=== PATIENT | female | born 1975 | race Caucasian/White ===

== ENCOUNTER 2016-06-19 05:06 | Inpatient (IN) | payer MEDICAID ==
[~2016-06-19] VITALS: Ht 152.4 cm; Wt 60.0 kg
[2016-06-19] VITALS (7 sets, daily range): BP systolic 112–130; BP diastolic 60–80; PULSE 66–81; RESP 18–19; Ht 152.4 cm; Wt 60.0 kg
[2016-06-19] MEDS ORDERED: OXYTOCIN 30 UNITS/LR 500 ML IV PRN ×2 (05:30→12:00)
[2016-06-19] MEDS ORDERED: CARBOPROST 250 MCG INJ IM PRN ×2 (05:30→12:00)
[2016-06-19] MEDS ORDERED: MISOPROSTOL 200 MCG TAB PR PRN ×2 (05:30→12:00)
[2016-06-19] MEDS ORDERED: METHYLERGONOVINE 0.2 MG INJ IM PRN ×2 (05:30→12:00)
[2016-06-19] MEDS ORDERED: CEFAZOLIN 2 GM/50 ML (PMX) 50 ML IV SCH (05:30)
[2016-06-19] MEDS ORDERED: OXYTOCIN 30 UNITS/LR 500 ML IV SCH (05:30)
[2016-06-19 05:39] LABS: ADD SCAN DIFF NO
[2016-06-19 05:55] LABS: BASOPHILS % 0.6 % (0.0-2.0); EOSINOPHILS # 0.1 10^3/ul (0.0-0.5); EOSINOPHILS % 1.1 % (0.0-7.0); HEMATOCRIT 35.2 % (37.0-47.0); HEMOGLOBIN 11.8 g/dl (12.0-16.0); LYMPHOCYTES # 1.6 10^3/ul (0.8-2.9); LYMPHOCYTES % 24.2 % (15.0-51.0); MEAN CORPUSCULAR HEMOGLOBIN 30.5 pg (29.0-33.0); MEAN CORPUSCULAR HGB CONC 33.5 g/dl (32.0-37.0); MEAN PLATELET VOLUME 8.9 fl (7.4-10.4); MONOCYTE # 0.7 10^3/ul (0.3-0.9); MONOCYTES % 10.1 % (0.0-11.0); NEUTROPHIL # 4.2 10^3/ul (1.6-7.5); NEUTROPHILS % 62.8 % (39.0-77.0); PLATELET COUNT 338 10^3/UL (140-415); RED BLOOD COUNT 3.87 10^6/ul (4.20-5.40); RED CELL DISTRIBUTION WIDTH 14.4 % (11.5-14.5); WHITE BLOOD COUNT 6.6 10^3/ul (4.8-10.8)
[2016-06-19 05:57] LABS: INR 0.91; PARTIAL THROMBOPLASTIN TIME 26.8 Sec (25.0-35.0); PROTIME 12.2 Sec (12.2-14.2)
[2016-06-19] MEDS: LACTATED RINGER'S 1,000 ML IV SCH ×3 (06:00→22:20)
[2016-06-19] MEDS ORDERED: CITRIC ACID/NA CITRATE 30 ML CUP PO ONE ×2 (07:30→08:30)
[2016-06-19] MEDS ORDERED: FAMOTIDINE 20 MG INJ IV ONE (08:00)
[2016-06-19] MEDS ORDERED: METOCLOPRAMIDE 10 MG INJ IV ONE (08:00)
[2016-06-19] MEDS ORDERED: LACTATED RINGER'S 1,000 ML IV ONE (08:02)
[2016-06-19] MEDS ORDERED: FENTAnyl 50 MCG/ML VIAL ONE (08:44)
[2016-06-19] MEDS ORDERED: morphine SULFATE/PF (10 MG/10 ML) INJ ONE (08:44)
[2016-06-19] MEDS ORDERED: OXYTOCIN 30 UNITS/LR 0 ML IV ONE (08:44)
[2016-06-19] MEDS ORDERED: PHENYLephrine (100 MCG/ML) 5ML SYG ONE (08:53)
[2016-06-19] MEDS ORDERED: ONDANSETRON 4 MG INJ ONE (08:54)
[2016-06-19] MEDS ORDERED: EPHEDrine SULFATE 50 MG/5 ML SYG ONE (09:14)
[2016-06-19] MEDS ORDERED: OXYTOCIN 30 UNITS/LR 500 ML IV ONE ×2 (09:20→09:21)
[2016-06-19] MEDS ORDERED: PROCHLORPERAZINE 10 MG INJ IV PRN ×2 (09:30→10:30)
[2016-06-19] MEDS ORDERED: KETOROLAC 30 MG INJ IV PRN (09:30)
[2016-06-19] MEDS ORDERED: MEPERIDINE 25 MG INJ IV PRN (09:30)
[2016-06-19] MEDS ORDERED: HYDROmorphONE (0.2 MG/ML) 10ML SYG IV PRN (09:30)
[2016-06-19] MEDS ORDERED: FENTAnyl 50 MCG/ML VIAL IV PRN (09:30)
[2016-06-19] MEDS ORDERED: ONDANSETRON 4 MG INJ IV PRN ×2 (09:30→10:30)
[2016-06-19] MEDS ORDERED: DIPHENHYDRAMINE 50 MG INJ IV PRN ×2 (09:30→10:30)
[2016-06-19] MEDS ORDERED: HYDROmorphONE 1 MG/ML SYG IV PRN ×2 (10:30)
[2016-06-19] MEDS ORDERED: NALOXONE (0.4 MG/ML) INJ IV PRN (10:30)
[2016-06-19] MEDS ORDERED: ZOLPIDEM 5 MG TAB PO PRN (10:30)
[2016-06-19] MEDS ORDERED: CEFAZOLIN 1 GM/50 ML (PMX) 50 ML IVPB SCH (12:00)
[2016-06-19] MEDS ORDERED: LANOLIN 7 GM TUBE TOP PRN (12:00)
[2016-06-19] MEDS: IBUPROFEN 600 MG TAB PO SCH ×2 (12:00→17:48)
[2016-06-19] MEDS ORDERED: OXYCODONE/ACETAMINOPHEN (5/325) TAB PO PRN (12:00)
[2016-06-19] MEDS ORDERED: ACETAMINOPHEN/CODEINE #3 TAB PO PRN ×2 (12:00)
[2016-06-19] MEDS: OXYTOCIN 30 UNITS/LR 500 ML IV SCH ×2 (13:14→17:58)
[2016-06-19] MEDS: KETOROLAC 30 MG INJ IV PRN (16:17)
--- NOTE | 2016-06-19 17:53 | HP ---
Date/Time of Note Date/Time of Note DATE: 06/19/16 TIME: 17:42 OB - History Hx of Present Free Text/Dictation This is a 40 years old female 4 para 1 SAB 2 living child 1 EDC of June 23, 2016 admitted to [facility] at 39 weeks and 3 days with a history of previous to undergo a repeat section this patient has been under the care of the [facility] and her course was complicated with gestational diabetes diet-controlled no other complications noted on the patient's for this . Medical history except for gestational diabetes negative for any other medical condition Surgical history one previous section Infectious and genetic history negative Physical examination 5 feet 132 pounds temperature 97.5 pulse 77 respiration 18 blood pressure 117/72 Head ears nose and throat negative next supple no thyromegaly Lungs clear to P&A Heart normal sinus rhythm no murmur Breast, bilateral breast examination abnormal palpable mass no nipple retraction or discharge no axillary adenopathy Abdomen size of the uterus consistent with the term measures 37 cm from symphysis pubis to the height of the fund heart rate category 1 Pelvic examination deferred Impression Intrauterine at 39 weeks and 4 days history of previous undergoing a repeat transverse low cervical section patient is aware of the complication of the surgery including bowel bladder injury infection hemorrhage and hematoma and she is willing to go ahead with this procedure Estimated Due Date: Jun 23, 2016 : 4 Para: 1 Spontaneous : 2 Care: Good Care Ultrasounds: Normal mid trimester US Obstetrical Complications: Gestational Diabetes Medical Complications: None Past Family/Social History * Past Medical, Surgical, Family and Obstetric Histories reviewed from chart. Rubella: immune RPR/VDRL: Negative GBS Status: Negative HBsAG: Negative OB Admission Exam Vital Signs Vital Signs Vital Signs Date Time Temp Pulse Resp B/P Pulse Ox O2 Delivery O2 Flow Rate FiO2 06/19/16 16:50 98 21 06/19/16 13:50 68 19 122/68 Room Air 06/19/16 12:50 97.9 Physical Exam HEENT: WNL Heart: Rhythm Normal Lungs: Clear, Equal Abdomen: WNL Reflexes: Normal Cervical Dilatation: None Effacement: 0% Station: -2 Membranes: Intact Heart Rate: 130's Accelerations: Accelerations Present Decelerations: No Decelerations Varibility: Absent Contractions on Admission: None Intensity: Mild Last 72 hours Lab Results CBC & BMP 06/19/16 05:25 OB Assessment/Plan Reason for admission: section, other (Repeat ) KATHY HARTMAN MD Jun 19, 2016 17:52
[2016-06-19] MEDS: SENNA/DOCUSATE NA (8.6MG/50MG) TAB PO SCH (21:00)
--- NOTE | 2016-06-19 21:40 | OPR ---
DATE OF OPERATION: PREOPERATIVE DIAGNOSES: 1. Intrauterine at 39 weeks and 4 days. 2. History of previous section. POSTOPERATIVE DIAGNOSES: 1. Intrauterine at 39 weeks and 4 days. 2. History of previous section. PROCEDURE: Repeat transverse low cervical section. SURGEON: Kathy Greene MD ECONOMIC DEVELOPER: Ernie Mcgrath MD ANESTHESIA: Spinal anesthesia. ANESTHESIOLOGIST: Dr. Idalmis Londono. FINDINGS: Live baby boy, 9 and 9. Baby weighed at 3565 grams. DETAILS OF THE PROCEDURE: Under satisfactory spinal anesthesia, the patient was prepped and draped and placed in supine position, tilted to the left. Pfannenstiel incision was made. Old scar was removed. Incision carried through the subcutaneous tissue. Bleeders brought under control with electrocautery. Fascia incised to the length of the incision. Rectus muscle divided in midline. Peritoneum exposed, entered through a transverse incision. Exploration of abdomen revealed a gravid uterus at term, normal appearing tubes and ovaries. Bladder flap was developed. Transverse incision was made in the lower segment of the uterus. Amniotic sac ruptured. Clear amniotic fluid noted. Live baby boy was delivered from unengaged vertex. Nasal oropharyngeal suction was performed. Cord was clamped after stopped pulsation. Nasal oropharyngeal suction was performed. Baby handed to the team for immediate attention. Patient received 20 units of Pitocin. Placenta delivered manually intact. Uterine cavity cleaned with wet sponge and drainage established. Uterus closed in 2 layers using Monocryl #1 in continuous fashion. Peritoneal cavity irrigated with warm saline. Sponge, needle and instrument reported to be correct. Abdominal peritoneum closed with 2-0 chromic catgut continuously. Rectus muscle approximated with few interrupted 2- 0 chromic catgut. Fascia closed with #1 PDS in a continuous fashion. Subcutaneous tissue approximated with 2-0 chromic catgut and the skin closed with darlene. Estimated blood loss 600 mL. Urine bag contained 200 mL of clear urine. Patient tolerated procedure well, transferred to recovery room in a good condition. Dictated By: KATHY CHIN/KUSUM Conf#: [id number] DID#: [id number] MTDD
--- NOTE | 2016-06-19 23:54 | OPR ---
DATE OF OPERATION: 06/19/2016 PREOPERATIVE DIAGNOSES: 1. Intrauterine at 39 weeks and 3 days. 2. History of previous section. POSTOPERATIVE DIAGNOSES: 1. Intrauterine at 39 weeks and 3 days. 2. History of previous section. PROCEDURE: Repeat transverse low cervical section. SURGEON: Kathy Hartman MD COMMUNITY SERVICES COORDINATOR: Ernie Mcgrath MD ANESTHESIA: Spinal. ANESTHESIOLOGIST: Idalmis Londono MD FINDINGS: Live baby boy, 9 and 9. Baby weighed 3565 grams. DETAILS OF THE PROCEDURE: Under satisfactory spinal anesthesia, the patient was prepped and draped and placed in supine position, tilted to the left. Pfannenstiel incision was made. Old scar was re moved. Incision carried through the subcutaneous tissue. Bleeders brought under control with elect rocautery. Fascia incised the full length of the incision. Rectus muscle divided in midline. Shannan toneum exposed, entered through a transverse incision. Exploration of the abdomen revealed a gravid uterus at term, normal-appearing tubes and ovaries and no abdominal adhesions. Bladder flap was de veloped. Transverse incision was made in the lower segment of the uterus. Amniotic sac ruptured. Clear amniotic fluid noted. Live baby boy was delivered from LOT position. Nasal oropharyngeal suc tion was performed. Cord clamped after stopped pulsation. Baby handed to the team for imm ediate attention. The patient received 20 units of Pitocin. Placenta delivered manually intact. U terine cavity cleaned with wet sponge and drainage established. Uterus closed in 2 layers using Mon ocryl #1 in continuous fashion. Peritoneal cavity irrigated with warm saline. Sponge, needle and i nstrument reported to be correct. Abdominal peritoneum closed with 2-0 chromic catgut continuously. Rectus muscle approximated with a few interrupted 2-0 chromic catguts. Fascia closed with #1 PDS in a continuous fashion. Subcutaneous tissue approximated with 2-0 chromic catgut. The skin closed with darlene. Estimated blood loss 600 mL. Urine bag contained 250 to 300 mL of clear urine. The patient tolerated the procedure well. Transferred to the recovery room in a good condition. Dictated By: KATHY HARTMAN MD HF/NTS Conf#: [id number] DID#: [id number]
[2016-06-20 00:05] VITALS: BP 106/57; PULSE 80; RESP 18
[2016-06-20] MEDS: KETOROLAC 30 MG INJ IV PRN (02:22)
[2016-06-20 03:45] VITALS: BP 116/55; PULSE 75; RESP 18
[2016-06-20] MEDS: IBUPROFEN 600 MG TAB PO SCH ×5 (06:00→23:33)
[2016-06-20] MEDS: LACTATED RINGER'S 1,000 ML IV SCH ×2 (07:16→14:30)
[2016-06-20 08:10] VITALS: BP 101/56; PULSE 79; RESP 16
[2016-06-20 08:50] LABS: ADD SCAN DIFF NO
[2016-06-20 09:00] LABS: BASOPHILS % 0.4 % (0.0-2.0); EOSINOPHILS % 0.5 % (0.0-7.0); HEMATOCRIT 31.2 % (37.0-47.0); HEMOGLOBIN 10.4 g/dl (12.0-16.0); LYMPHOCYTES # 1.1 10^3/ul (0.8-2.9); LYMPHOCYTES % 14.3 % (15.0-51.0); MEAN CORPUSCULAR HEMOGLOBIN 30.3 pg (29.0-33.0); MEAN CORPUSCULAR HGB CONC 33.3 g/dl (32.0-37.0); MONOCYTE # 0.5 10^3/ul (0.3-0.9); MONOCYTES % 6.7 % (0.0-11.0); NEUTROPHIL # 6.1 10^3/ul (1.6-7.5); NEUTROPHILS % 77.8 % (39.0-77.0); PLATELET COUNT 280 10^3/UL (140-415); RED BLOOD COUNT 3.43 10^6/ul (4.20-5.40); RED CELL DISTRIBUTION WIDTH 14.7 % (11.5-14.5); WHITE BLOOD COUNT 7.9 10^3/ul (4.8-10.8)
[2016-06-20] MEDS: OXYCODONE/ACETAMINOPHEN (5/325) TAB PO PRN (10:04)
[2016-06-20] MEDS: SENNA/DOCUSATE NA (8.6MG/50MG) TAB PO SCH ×2 (10:05→21:11)
[2016-06-20 16:00] VITALS: BP 104/71; PULSE 100; RESP 20
--- NOTE | 2016-06-20 17:33 | PN ---
Date/Time of Note Date/Time of Note DATE: 06/20/16 TIME: 17:31 OB Subjective Subjective Subjective Post day 1 Vital signs stable, afebrile abdomen soft mildly distended uterus fairly firm to the right of the midline below the umbilicus, lochia moderate incision dry extremities normal, diet will be improved and patient is able to pass flatus ambulation encouraged Laboratory Tests Test 06/20/16 08:15 White Blood Count 7.910^3/ul Red Blood Count 3.4310^6/ul Hemoglobin 10.4g/dl Hematocrit 31.2% Mean Corpuscular Volume 91.0fl Mean Corpuscular Hemoglobin 30.3pg Mean Corpuscular Hemoglobin Concent 33.3g/dl Red Cell Distribution Width 14.7% Platelet Count 02925^3/UL Mean Platelet Volume 9.0fl Neutrophils % 77.8% Lymphocytes % 14.3% Monocytes % 6.7% Eosinophils % 0.5% Basophils % 0.4% Nucleated Red Blood Cells % 0.0/100WBC Neutrophils # 6.110^3/ul Lymphocytes # 1.110^3/ul Monocytes # 0.510^3/ul Eosinophils # 0.010^3/ul Basophils # 0.010^3/ul Nucleated Red Blood Cells # 0.010^3/ul Current Medications Medications (Trade) Dose Ordered Sig/Elsi Route PRN Reason Start Time Stop Time Status Last Admin Dose Admin Lactated Ringer's 1,000 ml @ 125 mls/hr Q8H IV 06/19/16 05:27 06/19/16 11:51 DC 06/19/16 07:17 Cefazolin Sodium/ Dextrose 50 ml @ 100 mls/hr ONCE IV 06/19/16 05:30 06/19/16 11:51 DC Oxytocin/Lactated Ringer's 500 ml @ 125 mls/hr ONCE IV 06/19/16 05:30 06/19/16 11:51 DC 06/19/16 10:19 Oxytocin/Lactated Ringer's 500 ml @ 0 mls/hr ONCE PRN IV For Hemorrhage Management 06/19/16 05:30 06/19/16 11:51 DC Methylergonovine Maleate (Methergine) 0.2 mg ONCE PRN IM VAGINAL BLEEDING 06/19/16 05:30 06/19/16 11:51 DC Carboprost Tromethamine (Hemabate) 250 mcg ONCE PRN IM VAGINAL BLEEDING 06/19/16 05:30 06/19/16 11:51 DC Misoprostol (Cytotec) 1,000 mcg ONCE PRN IA VAGINAL BLEEDING 06/19/16 05:30 06/19/16 11:51 DC Citric Acid/ Sodium Citrate (Bicitra) 30 ml ONCE ONCE PO 06/19/16 07:30 06/19/16 07:31 DC 06/19/16 07:34 Metoclopramide HCl (Reglan) 10 mg ONCE ONCE IV 06/19/16 08:00 06/19/16 08:01 DC 06/19/16 08:28 Famotidine 20 mg 20 mg ONCE ONCE IV 06/19/16 08:00 06/19/16 08:01 DC 06/19/16 08:28 Lactated Ringer's (Lr) 1,000 ml @ 1,000 mls/hr Q1H ONCE IV 06/19/16 08:02 06/19/16 09:01 DC 06/19/16 08:29 Citric Acid/ Sodium Citrate 30 ml 30 ml pre-procedure ONCE PO 06/19/16 08:30 06/19/16 08:31 DC Oxytocin/Lactated Ringer's 0 ml @ ud STK-MED ONCE IV 06/19/16 08:44 06/19/16 08:45 DC Morphine Sulfate (Duramorph) 10 mg STK-MED ONCE .ROUTE 06/19/16 08:44 06/19/16 08:45 DC Fentanyl (Sublimaze) 100 mcg STK-MED ONCE .ROUTE 06/19/16 08:44 06/19/16 08:45 DC Phenylephrine HCl (Sarath-Synephrine Inj Syg) 500 mcg STK-MED ONCE .ROUTE 06/19/16 08:53 06/19/16 08:54 DC Ondansetron HCl (Zofran Inj) 4 mg STK-MED ONCE .ROUTE 06/19/16 08:54 06/19/16 08:55 DC Ephedrine Sulfate 50 mg STK-MED ONCE .ROUTE 06/19/16 09:14 06/19/16 09:15 DC Hydromorphone HCl (Dilaudid (Rec)) 0.4 mg PACU ORDER PRN IV PAIN 06/19/16 09:30 06/19/16 11:51 DC Fentanyl (Sublimaze) 25 mcg PACU ORDER PRN IV PAIN 06/19/16 09:30 06/19/16 11:51 DC Ketorolac Tromethamine (Toradol) 30 mg PACU ORDER PRN IV PAIN 06/19/16 09:30 06/19/16 11:51 DC Ondansetron HCl (Zofran Inj) 4 mg PACU ORDER PRN IV NAUSEA AND/OR VOMITING 06/19/16 09:30 06/19/16 11:51 DC Prochlorperazine (Compazine Inj) 5 mg PACU ORDER PRN IV NAUSEA AND/OR VOMITING 06/19/16 09:30 06/19/16 11:51 DC Meperidine HCl (Demerol) 25 mg PACU ORDER PRN IV POST-OP RIGORS 06/19/16 09:30 06/19/16 11:51 DC Diphenhydramine HCl 25 mg 25 mg PACU ORDER PRN IV PRURITUS 06/19/16 09:30 06/19/16 11:51 DC Oxytocin/Lactated Ringer's 500 ml @ ud STK-MED ONCE IV 06/19/16 09:20 06/19/16 09:21 DC Oxytocin/Lactated Ringer's 500 ml @ ud STK-MED ONCE IV 06/19/16 09:21 06/19/16 09:22 DC Naloxone HCl (Narcan) 0.1 mg Q2M PRN IV FOR RESP RATE 8 OR LESS 06/19/16 10:30 06/20/16 08:51 DC Ketorolac Tromethamine (Toradol) 30 mg Q6H PRN IV PAIN 06/19/16 10:30 06/20/16 08:51 DC 06/20/16 02:22 Hydromorphone HCl (Dilaudid) 0.2 mg Q3H PRN IV PAIN LEVEL 1-5 06/19/16 10:30 06/20/16 08:51 DC Hydromorphone HCl (Dilaudid) 0.4 mg Q3H PRN IV PAIN LEVEL 6-10 06/19/16 10:30 06/20/16 08:51 DC Diphenhydramine HCl (Benadryl) 25 mg Q6H PRN IV ITCHING 06/19/16 10:30 06/20/16 08:51 DC Ondansetron HCl (Zofran Inj) 4 mg Q6H PRN IV NAUSEA AND/OR VOMITING 06/19/16 10:30 06/20/16 08:51 DC Prochlorperazine (Compazine Inj) 10 mg ONCE PRN IV NAUSEA AND/OR VOMITING 06/19/16 10:30 06/20/16 08:51 DC Zolpidem Tartrate (Ambien) 5 mg HS MAY REPEAT X 1 PRN PO INSOMNIA 06/19/16 10:30 06/20/16 08:51 DC Miscellaneous Information (* Miscellaneous Pharmacy Order) Duramorph: 0.2 mg Spi... GIVEN XX 06/19/16 10:30 06/19/16 11:51 DC Acetaminophen/ Codeine Phosphate (Tylenol No.3) 1 tab Q4H PRN PO PAIN LEVEL 4-6 06/19/16 12:00 Acetaminophen/ Codeine Phosphate (Tylenol No.3) 2 tab Q4H PRN PO PAIN LEVEL 7-10 06/19/16 12:00 Oxycodone/ Acetaminophen (Percocet (5/ 325)) 1 tab Q4H PRN PO PAIN LEVEL 4-6 06/19/16 12:00 06/20/16 10:04 Oxycodone/ Acetaminophen (Percocet (5/ 325)) 2 tab Q4H PRN PO PAIN LEVEL 7-10 06/19/16 12:00 Ibuprofen (Motrin) 600 mg Q6 PO 06/19/16 12:00 06/20/16 12:40 Simethicone (Mylicon) 160 mg Q8H PRN PO DISTENSION/GAS/BLOATING 06/19/16 12:00 Senna/Docusate Sodium (Senokot-S) 1 tab BID PO 06/19/16 21:00 06/20/16 10:05 Lanolin (Kai-S-Aeudav) 1 applic BEDSIDE MEDICATION PRN TOP BEDSIDE FOR [place] TO NIPPLES 06/19/16 12:00 Diphtheria/ Tetanus/Acell Pertussis 0.5 ml 0.5 ml ONCE ONCE IM* 06/22/16 09:00 06/22/16 09:01 Oxytocin/Lactated Ringer's 500 ml @ 0 mls/hr ONCE PRN IV For Hemorrhage Management 06/19/16 12:00 Methylergonovine Maleate (Methergine) 0.2 mg ONCE PRN IM VAGINAL BLEEDING 06/19/16 12:00 Carboprost Tromethamine (Hemabate) 250 mcg ONCE PRN IM VAGINAL BLEEDING 06/19/16 12:00 Misoprostol 1000 mcg 1,000 mcg ONCE PRN IA VAGINAL BLEEDING 06/19/16 12:00 Cefazolin Sodium 50 ml @ 100 mls/hr ONCE IVPB 06/19/16 12:00 06/19/16 12:29 DC 06/19/16 16:15 Oxytocin/Lactated Ringer's 500 ml @ 125 mls/hr Q4H IV 06/19/16 11:47 06/19/16 17:58 Lactated Ringer's (Lr) 1,000 ml @ 125 mls/hr Q8H IV 06/19/16 22:30 06/20/16 07:16 KATHY HARTMAN MD Jun 20, 2016 17:33
[2016-06-20 19:20] VITALS: BP 119/72; PULSE 81; RESP 18
[2016-06-21 03:55] VITALS: BP 108/61; PULSE 82; RESP 18
[2016-06-21] MEDS: IBUPROFEN 600 MG TAB PO SCH ×3 (05:28→17:59)
[2016-06-21] MEDS: SENNA/DOCUSATE NA (8.6MG/50MG) TAB PO SCH ×2 (08:31→21:00)
[2016-06-21 08:32] VITALS: BP 101/62; PULSE 76; RESP 18
[2016-06-21] MEDS: OXYCODONE/ACETAMINOPHEN (5/325) TAB PO PRN (08:32)
[2016-06-21] MEDS ORDERED: NA PHOSPHATE/BIPHOS 133 ML ENEMA PR ONE (10:30)
[2016-06-21 16:20] VITALS: BP 110/58; PULSE 79; RESP 18
[2016-06-22] MEDS: IBUPROFEN 600 MG TAB PO SCH ×3 (00:18→11:39)
[2016-06-22 04:00] VITALS: BP 98/55; PULSE 77; RESP 18
[2016-06-22 07:45] VITALS: BP 118/60; PULSE 88; RESP 19
[2016-06-22] MEDS: SENNA/DOCUSATE NA (8.6MG/50MG) TAB PO SCH (08:49)
[2016-06-22] MEDS ORDERED: DIPHTH/TET/ACEL PERTUSS (ADULT) 0.5 ML VIAL IM* ONE (09:00)
--- NOTE | 2016-06-22 12:00 | DS ---
Date/Time of Note Date/Time of Note DATE: 06/22/16 TIME: 11:57 Discharge Summary Admission/Discharge Info Admit Date/Time Jun 19, 2016 at 05:06 Discharge Date/Time June 22, 2016 Final Diagnosis Post repeat day 3 Patient Condition: Good Procedures Repeat Hx of Present Illness with history of previous Hospital Course Uneventful Follow-up Plan Appointment office in 1 week for postoperative check KATHY HARTMAN MD Jun 22, 2016 12:00
--- NOTE | 2016-06-22 12:08 | PD.PPDC ---
[facility] Discharge Instruction Condition Patient Condition: Good Diet Diet: Resume Regular Diet Activity/Restrictions Activity: Normal Activity May Shower Restrictions: No Exercising Wound/Drain Care Instructions Wound/Drain Care Instructions: Remove Steri Strips in 1 week Follow-up Follow-up with Physician: 1, Week/Weeks Return to clinic for MEDICAL DIAGNOSTIC RADIOGRAPHER Instructions: Fever greater than 101 Worsening abdominal pain Excessive Vaginal Bleeding More than 2 pads per hour Unable to tolerate diet OB Instructions: Breast Tenderness Blurried Vision Headache Surgical Instructions: Incisional Drainage Incisional Redness KATHY HARTMAN MD Jun 22, 2016 12:08
== END 2016-06-22 13:45 | disposition home or self-care (01) | DRG 766 ==
LOC: L-D 05:06 → PP1 12:25
PROVIDERS: ADMIT Obstetrics & Gynecology; ATTEND Obstetrics & Gynecology
PROC: 10D00Z1 Extraction of Products of Conception, Low, Open Approach (ICD-10-PCS; principal; 2016-06-19 07:30)
DX: O34.211 Maternal care for low transverse scar from previous cesarean delivery (principal); O24.429 Gestational diabetes mellitus in childbirth, unspecified control; Z3A.39 39 weeks gestation of pregnancy; Z37.0 Single live birth
CPT/HCPCS: 85025; 85610; 85730; 86592; 86703; 86850; 86900; 86901; 90715; 94760; 99464; J0690; J1885; J2274; J2370; J2405; J2590; J2765; J3010; J7120